=== PATIENT | male | born 2000 | race African-American/Black ===

== ENCOUNTER 2021-05-24 11:43 | Outpatient (CLI) | payer SELFPAY | END 2021-05-24 11:44 | disposition EMS.NT | LOC: EMS 11:43 | DX: R45.851 Suicidal ideations (principal); F41.9 Anxiety disorder, unspecified ==

== ENCOUNTER 2023-09-27 22:19 | Emergency (ER) | payer OTHER ==
[2023-09-27 22:39] VITALS: BP 147/112; O2SAT 99
--- NOTE | 2023-09-27 22:52 | ED Physician Documentation ---
History of Present Illness - Stated complaint Stated Complaint: R WRIST INJ - Chief complaint Chief Complaint: Ext Problem - History obtained from History obtained from: Patient - Additonal information Additional information: 23yM presents to the ED with R wrist laceration after cutting it on sharp metal while at work around 11:30am. he states he has severe healthcare anxiety and had to work himself up to come in. tdap utd (2017). R hand dominant PD PAST MEDICAL HISTORY - Past Medical History Past Medical History: No Cardiovascular: None Respiratory: None Neuro: None Endocrine/Autoimmune: None GI: None : None HEENT: None Psych: None Musculoskeletal: None Derm: None - Past Surgical History Past Surgical History: No - Present Medications Home Medications: Ambulatory Orders Medication Instructions Recorded Confirmed No Known Home Medications 09/27/23 09/27/23 - Allergies Allergies/Adverse Reactions: Allergies Allergy/AdvReac Type Severity Reaction Status Date / Time No Known Drug Allergies Allergy Verified 09/27/23 22:31 - Social History Does the pt smoke?: Yes Smoking Status: Current every day smoker Does the pt drink ETOH?: Yes Does the pt have substance abuse?: No - Immunizations Immunizations are current?: Yes - POLST Patient has POLST: No PD ED PE NORMAL - Vitals Vital signs reviewed: Yes - General General: Alert and oriented X 3, No acute distress, Well developed/nourished - HEENT HEENT: Atraumatic, PERRL, EOMI - Derm Derm: Normal color, Warm and dry, Other (2cm laceration of R volar wrist without tendon involvement. hemostatic. CSM intact RUE. 2+ radial pulse) Results - Vitals Vitals: Vital Signs - 24 hr 09/27/23 22:21 Temperature 37.2 C Heart Rate 90 Respiratory 19 Rate Blood Pressure 147/112 H O2 Saturation 99 Oxygen O2 Source Room air Procedures - Laceration (location) Hand right Length in cm: 2 Wound type: Linear Neurovascular status: Sensory intact, Motor intact, Vascular intact Tendon involvement: Tendon intact Anesthesia: Lidocaine 1%, Other (topical lidocaine) Wound preparation: Irrigated copiously NS, Wound explored, To the base Skin layer closure: Nylon, Interrupted, Size #-0 - enter number (4), Sutures - enter # (4) Other: Patient tolerated well, No complications, Neurovascular intact, Dressing applied, Tetanus UTD PD Medical Decision Making - ED course ED course: 23yM presents to the ED with R wrist laceration. provided with xanax with improvement in anxiety. Topical lidocaine and then injected local anesthetic applied and laceration was repaired without difficulty. return precautions given. plan to f/u for suture removal in 14 days. Departure - Departure Disposition: 01 Home, Self Care Clinical Impression: Laceration of wrist Condition: Stable Instructions: ED Laceration All Comments: You were seen in the emergency department for wrist laceration. You need to have your 4 stitches removed in 14 days. This may be done at walk in clinic or urgent care or with your primary care provider. Please return to the emergency department if you have numbness, spreading redness, severe pain, pus, or other concerns. Forms: PCP List, Activity restrictions
[2023-09-27] MEDS ORDERED: ALPRAZolam 0.25 MG TABLET PO ONE (23:00)
[2023-09-27] MEDS ORDERED: IBUPROFEN 600 MG TABLET PO ONE (23:02)
[2023-09-27] MEDS: ALPRAZolam 0.25 MG TABLET PO STA (23:07)
[2023-09-27] MEDS: IBUPROFEN 600 MG TABLET PO STA (23:07)
== END 2023-09-28 00:31 | disposition home or self-care (01) ==
LOC: ED 22:19
DX: S61.511A Laceration without foreign body of right wrist, initial encounter (principal); W26.8XXA Contact with other sharp object(s), not elsewhere classified, initial encounter; Y99.0 Civilian activity done for income or pay; F17.200 Nicotine dependence, unspecified, uncomplicated
CPT/HCPCS: 1040M; 12001; 99282; A9270

== ENCOUNTER 2023-10-10 17:06 | Emergency (ER) | payer OTHER ==
[2023-10-10 17:35] VITALS: BP 150/97; O2SAT 100
--- NOTE | 2023-10-10 18:07 | ED Physician Documentation ---
History of Present Illness - Stated complaint Stated Complaint: STITCH REMOVAL - Chief complaint Chief Complaint: Ext Problem - History obtained from History obtained from: Patient - History of Present Illness Timing: Today - Additonal information Additional information: 23-year-old male with a well-healed laceration to the right wrist, here for suture removal. No complaints. No redness. No swelling. No pain. Review of Systems Constitutional: denies: Fever, Chills PD PAST MEDICAL HISTORY - Past Medical History Cardiovascular: None Respiratory: None Neuro: None Endocrine/Autoimmune: None GI: None : None HEENT: None Psych: None Musculoskeletal: None Derm: None - Past Surgical History Past Surgical History: No - Present Medications Home Medications: Ambulatory Orders Medication Instructions Recorded Confirmed No Known Home Medications 09/27/23 10/10/23 - Allergies Allergies/Adverse Reactions: Allergies Allergy/AdvReac Type Severity Reaction Status Date / Time No Known Drug Allergies Allergy Verified 09/27/23 22:31 - Social History Does the pt smoke?: Yes Smoking Status: Current every day smoker Does the pt drink ETOH?: Yes Does the pt have substance abuse?: No - Immunizations Immunizations are current?: Yes - POLST Patient has POLST: No PD ED PE NORMAL - Vitals Vital signs reviewed: Yes - General General: Alert and oriented X 3, No acute distress - Extremities Extremities: Other (Well-healed laceration to the right wrist. Neurovascular intact. No tendon injury. No skin changes. No redness, swelling or discharge.) Results - Vitals Vitals: Vital Signs - 24 hr 10/10/23 17:23 Temperature 36.4 C L Heart Rate 69 Respiratory 16 Rate Blood Pressure 150/97 H O2 Saturation 100 Oxygen O2 Source Room air PD Medical Decision Making - ED course Complexity details: considered differential, d/w patient ED course: Sutures were removed by the nurse. No complications. Wound is well-healed. No signs of infection. This document was made in part using voice recognition software. While efforts are made to proofread this document, sound alike and grammatical errors may occur. Departure - Departure Disposition: 01 Home, Self Care Clinical Impression: Visit for suture removal Condition: Good Instructions: ED Wound Check Sutr Remove No Infec Follow-Up: your,doctor as needed [Other] Comments: Your sutures were removed today. Please follow-up with your doctor as needed for any further care. Return if you worsen Forms: PCP List
== END 2023-10-10 18:11 | disposition home or self-care (01) ==
LOC: ED 17:06
DX: Z48.02 Encounter for removal of sutures (principal); S61.511D Laceration without foreign body of right wrist, subsequent encounter; X58.XXXD Exposure to other specified factors, subsequent encounter; F17.200 Nicotine dependence, unspecified, uncomplicated
CPT/HCPCS: 99281; 99282